=== PATIENT | female | born 1940 | race Caucasian/White ===

== ENCOUNTER → 2018-04-28 | Outpatient (CLI) | payer OTHER | LOC: HYPER 06:49 | DX: L89.620 Pressure ulcer of left heel, unstageable (principal); C41.9 Malignant neoplasm of bone and articular cartilage, unspecified; E46 Unspecified protein-calorie malnutrition; M86.8X8 Other osteomyelitis, other site; L84 Corns and callosities; K74.60 Unspecified cirrhosis of liver; K21.9 Gastro-esophageal reflux disease without esophagitis; M79.672 Pain in left foot; F32.9 Major depressive disorder, single episode, unspecified; F41.9 Anxiety disorder, unspecified; Z98.41 Cataract extraction status, right eye; Z98.42 Cataract extraction status, left eye ==